=== PATIENT | male | born 1955 | race Caucasian/White ===

== ENCOUNTER 2017-11-10 10:34 | Outpatient (CLI) | payer OTHER ==
--- NOTE | 2017-11-10 12:48 | CT ---
CTA OF NECK AND INTRACRANIAL CTA: History: Patient with aortic aneurysm. I71.9 Technique: 2D and 3D reconstructed images performed on an independent 3D workstation. FINDINGS: There is a descending aortic dissection. The true lumen is significantly smaller than the false lumen . Calcifications seen in the LAD. The right brachiocephalic artery is unremarkable. Some subclavian calcifications are seen on the righ t. The right common carotid artery is patent. There is some atherosclerotic plaque in the distal lowe r aspect of the right CCA and the right carotid bulb. This extends into the right ICA resulting in ap proximately 25% distal right CCA and proximal right ICA stenosis. The right ICA is patent. The left c ommon carotid artery contains some atherosclerotic plaque in the distal most aspect in the left carot id bulb extending into the left ICA resulting in approximately 20% left ICA stenosis. The distal inte rnal carotid arteries of the skull base are bilaterally tortuous. Good flow is seen in the right and left MCA and anterior cerebral arteries. The left vertebral artery is hypoplastic. The right vertebra l artery is unremarkable. The basilar artery and posterior cerebral arteries are unremarkable. Crusher Feeder ior communicating arteries and anterior communicating artery are unremarkable. IMPRESSION: 1. Aortic dissection in the descending thoracic aorta. 2. Left anterior descending coronary artery calcifications. 3. Approximately 20% bilateral carotid bulb and ICA stenosis. POS: [facility]
[2017-11-10] MEDS ORDERED: Iopamidol 370 76% 100 ML VIAL ONE (17:26)
== END 2017-11-10 10:35 | disposition home or self-care (01) ==
LOC: CT 10:34
PROVIDERS: ATTEND Internal Medicine Cardiovascular Disease
DX: I71.9 Aortic aneurysm of unspecified site, without rupture (principal); I71.01 Dissection of thoracic aorta; I25.10 Atherosclerotic heart disease of native coronary artery without angina pectoris; I65.23 Occlusion and stenosis of bilateral carotid arteries
CPT/HCPCS: 70496; 70498

== ENCOUNTER 2017-12-05 10:23 | Outpatient (CLI) | payer OTHER ==
[~2017-12-05 10:23] MED LIST: Iopamidol 370 76% 100 ML VIAL ONE
[2017-12-05 11:11] LABS: Estimated GFR-MDRD - POC Greater than 90
--- NOTE | 2017-12-05 12:08 | CT ---
CT ARTERIOGRAM CHEST WITH IV CONTRAST AND 3D MIP IMAGING CT ARTERIOGRAM ABDOMEN WITH IV CONTRAST AND 3D MIP IMAGING: History: Aortic dissection. Comparison: 11-10-17, 04-28-14, 04-27-07 FINDINGS: Dilatation of the ascending aorta, beginning at the level of the aortic root, measures up to 7.6 cm g reatest AP diameter. There is normal branching of the great vessels. Calcification is present within the coronary arteries and other arterial structures. Prior coronary artery bypass surgery is apparent . Separation of the intima from the inner aortic wall of the descending aorta begins just distal to the left subclavian artery. The false lumen is larger than the true lumen with the dissection extending to the level of the aortic bifurcation. Thrombus is present at the apex of the distal aortic arch aris r the origin of the dissection. Visceral arteries are patent. There is flow into each iliac system. Small cysts are again demonstrated throughout the liver. A large lobulated predominately low density mass involving the left adrenal gland now contains some calcification. The mass measures up to 4.2 cm greatest oblique diameter on the axial images. There are degenerative changes of the lumbar spine. Diverticula arise from the colon without adjacent inflammation apparent. The pelvis is incompletely imaged. IMPRESSION: 1. Large [place] type B aortic dissection as detailed above. 2. Interval enlargement of the ascending aortic aneurysm, up to 7.6 cm diameter. 3. Atherosclerosis. 4. Enlarging left adrenal mass. Neoplasm is favored. Correlation with clinical and laboratory finding s regarding possibility of primary adrenal neoplasm is required. Percutaneous image guided biopsy cou ld be performed if needed. 5. Diverticulosis. POS: [facility]
== END 2017-12-05 10:24 | disposition home or self-care (01) ==
LOC: CT 10:23
PROVIDERS: ATTEND Thoracic Surgery (Cardiothoracic Vascular Surgery)
DX: I71.01 Dissection of thoracic aorta (principal); I71.2 Thoracic aortic aneurysm, without rupture; I70.90 Unspecified atherosclerosis; K57.90 Diverticulosis of intestine, part unspecified, without perforation or abscess without bleeding; E27.8 Other specified disorders of adrenal gland
CPT/HCPCS: 71275; 74175; 82565

== ENCOUNTER 2017-12-15 15:10 | Outpatient (CLI) | payer OTHER ==
[2017-12-15 16:20] LABS: Hemoglobin 15.1 g/dL (14.0-18.0)
[2017-12-15 16:56] LABS: ALT (SGPT) 28 U/L (8-55); AST (SGOT) 31 U/L (5-34); Albumin 4.4 g/dL (3.4-4.8); Alkaline Phosphatase 67 U/L (40-150); Anion Gap 14 mmol/L (10-20); BUN (Urea Nitrogen) 19 mg/dL (8.4-25.7); Bilirubin, Total 2.2 mg/dL (0.2-1.2); Calc. Creatinine Clearance 0 mL/min (70-130); Calcium 10.2 mg/dL (7.8-10.44); Carbon Dioxide 26 mmol/L (23-31); Chloride 106 mmol/L (98-107); Estimated GFR-MDRD Greater than 90; Globulin 2.4 g/dL (2.4-3.5); Glucose 100 mg/dL (80-115); Protein, Total 6.8 g/dL (5.8-8.1); Sodium 142 mmol/L (136-145)
== END 2017-12-15 15:11 | disposition home or self-care (01) ==
LOC: LABBT 15:10
PROVIDERS: ATTEND Internal Medicine Cardiovascular Disease
DX: Z01.810 Encounter for preprocedural cardiovascular examination (principal); I71.03 Dissection of thoracoabdominal aorta
CPT/HCPCS: 80053; 85014; 85018

== ENCOUNTER 2018-02-02 07:09 | Day surgery (SDC) | payer OTHER ==
[2018-02-01 09:24] VITALS: BMI 36.3
[2018-02-02] MEDS ORDERED: Diprivan 20 ML ONE (08:14)
[2018-02-02] MEDS ORDERED: Lidocaine 2% PF 100 mg/5 ml Syringe ONE (08:14)
[2018-02-02] MEDS ORDERED: Furosemide 20 MG/2 ML VIAL ONE (09:17)
[2018-02-02 09:57] LABS: INR-International Normal Ratio 1.7; Prothrombin Time 20.1 SEC (12.0-14.7)
--- NOTE | 2018-02-02 10:31 | OP ---
DATE OF PROCEDURE: 02/02/2018 INDICATION FOR PROCEDURE: A 62-year-old patient with atrial fibrillation and flutter post-surgical p rocedure. He was advised to undergo electrical cardioversion. He was taken to the recovery area whe re he underwent short acting propofol. Using 1 attempt at 100 joules he was successfully converted f rom his atrial flutter back to sinus rhythm without any difficulties or complications.
[2018-02-02 10:35] LABS: Anion Gap 14 mmol/L (10-20); BUN (Urea Nitrogen) 28 mg/dL (8.4-25.7); Calc. Creatinine Clearance 125 mL/min (70-130); Calcium 9.8 mg/dL (7.8-10.44); Carbon Dioxide 31 mmol/L (23-31); Chloride 103 mmol/L (98-107); Estimated GFR-MDRD 71; Glucose 151 mg/dL (80-115); Potassium 3.5 mmol/L (3.5-5.1); Sodium 144 mmol/L (136-145)
--- NOTE | 2018-02-02 14:24 | DIS ---
DATE OF PROCEDURE: 02/02/2018 He was seen in the outpatient setting to undergo electrocardioversion of atrial flutter. His other d iagnoses includes: 1. Atrial flutter. 2. Congestive heart failure symptoms. 3. Status post aortic arch replacement. 4. Coronary artery disease. 5. He also underwent a single vessel bypass surgery at the time of his aortic arch replacement as we ll as a valve replacement of the aortic valve. 6. He has history of intermittent atrial fibrillation. 7. He has a history of dyslipidemia. 8. History of hypertension. DISCHARGE DIAGNOSES: 1. Atrial flutter. 2. Congestive heart failure symptoms. 3. Status post aortic arch replacement. 4. Coronary artery disease. 5. He also underwent a single vessel bypass surgery at the time of his aortic arch replacement as we ll as a valve replacement of the aortic valve. 6. He has history of intermittent atrial fibrillation. 7. He has a history of dyslipidemia. 8. History of hypertension. PROCEDURES: Electrocardioversion of atrial flutter back to normal sinus rhythm with one attempt at 1 00 joules. FOLLOW UP: His followup will be with me in 7-10 days in the office. He will continue routine follow ups the primary care physician, Dr. Cesar Lin. HOSPITAL COURSE: This is a very pleasant 62-year-old gentleman who has a history of coronary disease and aortic aneurysm. He has undergone aortic valve replacement in the past. He was seen and in the outpatient setting was found to have aortic aneurysm, ascending aortic aneurysm and was advised to u ndergo repair. He was sent down to [place], Dr. Ramirez, where he underwent the procedure. He had a ortic arch replacement as well as coronary bypass grafting. He was noted on the follow up to be in a trial flutter. He also had significant signs of congestive heart failure at least lower extremity ed ori. On further questioning, the patient is not clear as to whether or not he has been taking his La six. This was not on his medication list that he brought in. It was on our list of medications from the office and when he goes home today he will give us that listing of his medications. He underwent the procedure today without any difficulties or complications except for showing defined IV access, but this was eventually found using venous ultrasound and the Anesthesiology were able to place the IV. He only required 100 joules to convert him back to sinus rhythm and since then conver alejandro and has remained in sinus rhythm. At this time, we will continue to follow him very carefully, b ut he will need further diuresis. He has significant lower extremity edema. His chest is clear ante riorly, decreases in the bases and his heart rate was regular, but did show atrial flutter after proc edure. His heart rate was stable in the 70s with sinus rhythm. If he remains stable, he will be dis charged home later today. He will need to call us from home with his medication list to determine wh ether he is taking his Lasix or not. It appears that he may not be taking his Lasix. This may be th e etiology of lower extremity edema. We will try to diurese the patient. I will give him 20 mg of I V Lasix prior to discharge here and see how he responds to the medication and he will call me when he arrived at home. We will also obtain a BMP to ensure that his potassium level is not too low.
== END 2018-02-02 10:14 | disposition home or self-care (01) ==
LOC: CCL 07:09
PROVIDERS: ATTEND Internal Medicine Cardiovascular Disease
PROC: 5A2204Z Restoration of Cardiac Rhythm, Single (ICD-10-PCS; principal; 2018-02-02)
DX: I48.92 Unspecified atrial flutter (principal); I48.91 Unspecified atrial fibrillation; I25.10 Atherosclerotic heart disease of native coronary artery without angina pectoris; E78.5 Hyperlipidemia, unspecified; I10 Essential (primary) hypertension; I71.2 Thoracic aortic aneurysm, without rupture; Z88.0 Allergy status to penicillin; Z95.2 Presence of prosthetic heart valve; Z95.1 Presence of aortocoronary bypass graft; Z98.890 Other specified postprocedural states
CPT/HCPCS: 80048; 85610; 92960; 96374; J1940; J2001; J2704

== ENCOUNTER 2018-05-03 12:05 | Inpatient (IN) | payer OTHER ==
[2018-05-03 13:12] LABS: Hemoglobin 12.7 g/dL (14.0-18.0); Mean Corpuscular HGB CONC 31.2 g/dL (32.0-36.0); Mean Corpuscular Hemoglobin 27.3 pg (27.0-31.0); Mean Corpuscular Volume 87.6 fl (80.0-94.0); Mean Platelet Volume 9.5 fL (7.4-10.4); Platelet Count 166 thou/uL (130-400); RBC Distribution Width 15.7 % (11.5-14.5); Red Blood Cell (RBC) Count 4.64 mill/uL (4.70-6.10); White Blood Cell (WBC) Count 9.6 thou/uL (4.8-10.8)
[2018-05-03 13:32] LABS: ALT (SGPT) 17 U/L (8-55); AST (SGOT) 21 U/L (5-34); Albumin 3.9 g/dL (3.4-4.8); Alkaline Phosphatase 63 U/L (40-150); Anion Gap 15 mmol/L (10-20); BUN (Urea Nitrogen) 16 mg/dL (8.4-25.7); Calc. Creatinine Clearance 0 mL/min (70-130); Calcium 9.7 mg/dL (7.8-10.44); Carbon Dioxide 21 mmol/L (23-31); Chloride 104 mmol/L (98-107); Estimated GFR-MDRD Greater than 90; Globulin 3.1 g/dL (2.4-3.5); Glucose 125 mg/dL (80-115); Potassium 3.5 mmol/L (3.5-5.1); Sodium 136 mmol/L (136-145)
[2018-05-03 13:39] LABS: Anisocytosis SLIGHT = 6-15 cells (100X) (0-5/hpf); Band 16 % (5-11); Hypochromia SLIGHT = 6-15 cells (100X) (0-5/hpf); Lymphocytes 2 % (21-51); MDiff Complete? YES; Monocytes 2 % (0-10); Neutrophil 80 % (42-75); PLT Morphology Comment Appears Adequate
[2018-05-03] MEDS ORDERED: Acetaminophen 500 MG TAB ONE (13:41)
--- NOTE | 2018-05-03 15:10 | ULT ---
VENOUS DUPLEX SONOGRAM LEFT LOWER EXTREMITY: HISTORY: Left leg pain and edema. FINDINGS: The left common femoral vein and greater saphenous junction were evaluated along with the femoral, de ep femoral, popliteal, and posterior tibial veins. There is good color and spectral Doppler flow, co mpression and augmentation. IMPRESSION: No sonographic evidence of deep vein thrombosis left lower extremity. POS: [facility]
[2018-05-03] MEDS ORDERED: Cefepime 2 GM VIAL ONE (16:20)
[2018-05-03] MEDS ORDERED: Ondansetron HCl/PF 4 MG/2 ML Vial IVP PRN (17:23)
[2018-05-03] MEDS ORDERED: Ondansetron ODT 4 MG TAB SL PRN (17:23)
[2018-05-03] MEDS ORDERED: hydrALAZINE 20 MG/ML VIAL SLOW IVP PRN (17:24)
[2018-05-03] MEDS ORDERED: HYDROcodone/Acetaminophen 5/325 mg Tablet PO PRN (17:24)
[2018-05-03] MEDS ORDERED: Mag-Al 1200 mg/1200 mg/30 ML UDCUP PO PRN (17:24)
[2018-05-03 17:44] VITALS: BMI 33.9
[2018-05-03] MEDS ORDERED: Vancomycin HCl 1.5 GM in Sodium Chloride 0.9% 250 ML 300 ML IVPB SCH (18:15)
[2018-05-03] MEDS: Sodium Chloride 0.9% 1,000 ML IV SCH (18:23)
[2018-05-03] MEDS: Acetaminophen 325 MG TAB PO PRN ×2 (18:33→23:38)
[2018-05-03 18:38] LABS: INR-International Normal Ratio 2.6; Prothrombin Time 28.8 SEC (12.0-14.7)
[2018-05-03] MEDS ORDERED: Warfarin Sodium 5 MG TAB PO SCH (19:45)
[2018-05-03] MEDS ORDERED: Ibuprofen 800 MG TAB PO PRN (20:16)
[2018-05-03] MEDS ORDERED: Vancomycin HCl 1 GM in Premix Bag 1 BAG IVPB SCH (21:00)
[2018-05-03] MEDS: cloNIDine 0.1 MG TAB PO SCH ×2 (21:06→23:43)
[2018-05-03] MEDS: Carvedilol 3.125 MG TAB PO SCH (21:07)
[2018-05-03] MEDS: Docusate 100 MG CAP PO SCH (21:07)
--- NOTE | 2018-05-03 21:10 | HP ---
PRIMARY CARE PHYSICIAN: Dr. Cesar Lin. CHIEF COMPLAINT: Pain and swelling in the left lower extremity. HISTORY OF PRESENT ILLNESS: The history of present illness is more or less limited as the patient do es not elaborate very much on his symptoms. He says that he began having some swelling in the left l ower extremity about 3-5 days ago. He denies having any trauma to the area. He denies any scratches , etc. He does admit that he is on his feet almost 12 hours a day for his work. He says that the sw elling got progressively worse in his left leg and then he also noted some redness and some soreness and it seemed to get even progressively worse overnight. This is why he was concerned and then came to the ER for evaluation. In the ER, he was evaluated and found to have a cellulitis of the lower ex tremity. His white count was normal, but he did have quite a bit of a left shift as well as a signif icant bandemia. Ultrasound of the leg was negative for DVT and he is being admitted for further eval uation and treatment. The patient denies any chest pain or shortness of breath. No fevers, no chill s, etc. REVIEW OF SYSTEMS: Constitutional: Again, no fevers, chills, no night sweats, no weight loss. HEEN T: No headache, no dizziness, no visual changes, no sore throat, rhinorrhea, neck pain, no adenopath y. Pulmonary: No hemoptysis, no cough, no wheezing. Cardiovascular: He denies any chest pain, no shortness of breath, no PND, no orthopnea. Gastrointestinal: No abdominal pain, no nausea, no vomit ing, no change in bowels. Genitourinary: No urinary frequency, hematuria, no hesitancy. Neurologic : No focal weakness, numbness, no seizures. Psychiatric: No symptoms of anxiety or depression. Sk in And Integument: As stated in the history of present illness. PAST MEDICAL HISTORY: Significant for coronary artery disease, history of atrial flutter, hyperlipid emia, hypertension, peripheral vascular disease, abdominal aortic aneurysm, and obesity. PAST SURGICAL HISTORY: He has had a repair of an abdominal aortic aneurysm in December of this year. The patient also had a hernia repair, right total knee replacement, coronary artery bypass grafting . He had surgery to repair a fracture in his left foot and an aortic valve replacement. ALLERGIES: PENICILLIN. SOCIAL HISTORY: He is not a smoker. He occasionally drinks one beer a week. He is single. He has no children. His surrogate decision maker is a cousin by the name of Martha Byrne. He would like to be a F[employer]. FAMILY HISTORY: Negative for any inheritable diseases. CURRENT MEDICATIONS: Include Coumadin 5 mg daily, aspirin 81 mg daily, atorvastatin 40 mg daily, car vedilol 3.125 mg twice a day, Catapres 0.1 mg twice daily, and hydrochlorothiazide 25 mg daily. PHYSICAL EXAMINATION: GENERAL: He is alert and oriented. He appears to be in no acute distress. He has had some appears to be rigors. VITAL SIGNS: Blood pressure was 120/68, heart rate is 87, respiratory rate of 18, temperature was up to 102.7. HEENT: His pupils are equal, round, and reactive. Extraocular muscles are intact. His sclerae anic teric. Throat no erythema, no exudates. NECK: No adenopathy, no bruits. LUNGS: Clear to auscultation. There is no wheezing or rales. CARDIOVASCULAR: He has a normal S1, S2. There was no S3 or S4. No murmurs, clicks, or rubs. ABDOMEN: Soft, it is nontender, nondistended. Positive for bowel sounds. No rebound or guarding. EXTREMITIES: He has significant redness of the left lower extremity up to the area of the knee. The re is also erythema. He has pitting edema in the left lower extremity as well and palpable dorsalis pedis pulses bilaterally; however, it is slightly diminished. NEURO: The exam is nonfocal. LABORATORY DATA: White blood cell count is 9.6, hemoglobin 12.7, hematocrit is 40.6, platelet count is 166, neutrophils are 80, bands are 16. Sodium is 136, potassium 3.5, chloride is 104, CO2 is 21, BUN is 16, creatinine 0.76, glucose is 125, natriuretic peptide is 695, total bilirubin is 2.0. He h ad a lower extremity venous Doppler, which was negative for DVT. ASSESSMENT AND PLAN: This is a 63-year-old gentleman who presents with swelling and erythema of the left lower extremity as well as fever and bandemia. This likely represents a cellulitis. He also me ets criteria for sepsis given the fever and bandemia. He will be placed in observation, started on I V antibiotics to cover the usual organisms including Staph and Strep and will add vancomycin for poss ible methicillin-resistant Staphylococcus aureus. Blood cultures have been taken due to the fever in the ER. 1. History of aortic valve replacement and chronic Coumadin. He will be started back on his usual m edications as well as Coumadin, and we will monitor his PT and INR daily. 2. Hypertension. Again, restart his usual antihypertensive medications as well as p.r.n. medication s. The patient will be reevaluated in the a.m. at which time, we will decide whether or not he needs continued hospitalization or if he can be discharged home. The area of the cellulitis was marked in the ER.
[2018-05-04] MEDS ORDERED: Cefepime 2 GM in Sodium Chloride 0.9% 100 ML IVPB SCH (04:00)
[2018-05-04] MEDS: Acetaminophen 325 MG TAB PO PRN ×3 (04:09→20:19)
[2018-05-04] MEDS ORDERED: Vancomycin HCl 1 GM in Premix Bag 1 BAG IVPB SCH (05:00)
[2018-05-04 05:16] LABS: INR-International Normal Ratio 2.4
[2018-05-04 05:17] LABS: #Lymphocytes 0.5 thou/uL (1.20-3.40); #Monocytes 0.3 thou/uL (0.11-0.59); #Neutrophils 8.2 thou/uL (1.40-6.50); %Basophils 0.3 % (0.0-1.0); %Eosinophils 0.4 % (0.0-10.0); %Lymphocytes 5.4 % (21.0-51.0); %Neutrophils 90.9 % (42.0-75.0); Hemoglobin 12.1 g/dL (14.0-18.0); Mean Corpuscular HGB CONC 30.9 g/dL (32.0-36.0); Mean Corpuscular Volume 87.3 fl (80.0-94.0); Mean Platelet Volume 9.6 fL (7.4-10.4); Platelet Count 155 thou/uL (130-400); RBC Distribution Width 15.7 % (11.5-14.5)
[2018-05-04 05:33] LABS: Anion Gap 11 mmol/L (10-20); BUN (Urea Nitrogen) 19 mg/dL (8.4-25.7); Calc. Creatinine Clearance 160 mL/min (70-130); Calcium 9.3 mg/dL (7.8-10.44); Carbon Dioxide 22 mmol/L (23-31); Chloride 106 mmol/L (98-107); Estimated GFR-MDRD Greater than 90; Glucose 146 mg/dL (80-115); Potassium 3.4 mmol/L (3.5-5.1); Sodium 136 mmol/L (136-145)
[2018-05-04] MEDS: Sodium Chloride 0.9% 1,000 ML IV SCH (07:47)
[2018-05-04] MEDS: Docusate 100 MG CAP PO SCH ×2 (07:50→20:20)
[2018-05-04] MEDS: cloNIDine 0.1 MG TAB PO SCH ×2 (07:50→20:20)
[2018-05-04] MEDS: Atorvastatin Calcium 40 MG TAB PO SCH (07:50)
[2018-05-04] MEDS: Carvedilol 3.125 MG TAB PO SCH ×2 (07:50→20:20)
[2018-05-04] MEDS: Hydrochlorothiazide 25 MG TAB PO SCH (07:50)
[2018-05-04] MEDS: Aspirin 81 mg Enteric Coated Tablet PO SCH (07:51)
[2018-05-04] MEDS: cefTRIAXone\\ROCEPHIN 1 GM in Sodium Chloride 0.9% 100 ML IVPB SCH ×2 (13:35→17:16)
[2018-05-04] MEDS: Warfarin Sodium 7.5 MG TAB PO SCH (17:15)
--- NOTE | 2018-05-04 21:59 | CON ---
DATE OF CONSULTATION: 05/05/2018 REASON FOR CONSULTATION: Bacteremia, artificial heart valve and cellulitis. HISTORY OF PRESENT ILLNESS: A 63-year-old who has a history of aortic valve replacement [address] Hernandez in [facility]. Subsequent aortic root replacement with another second replacement of the aortic valve prosthesis by different one in [place], who recovered from that surgery without difficulty except for problems with swelling of lower extremities. This was managed successfully, but over time, he noticed recurrence of swelling of the lower extremities and then development of redness and pain, went to the emergency room and that was admitted. He has been started on broad-spectrum coverage. He is awake, sitting by the bedside, appears in no distress, appears chronically ill. No headaches, no visual symptoms, sore throat, odynophagia, dysphagia, no back pain, no dyspnea or chest pain, no abdominal pain or diarrhea. Voiding without difficulty, somewhat constipated. No neurological symptoms. PAST MEDICAL HISTORY: Coronary artery disease, aortic valve insufficiency with replacement and then aortic root replacement with a replacement of the aortic valve, obesity, PVD, hypertension, venous insufficiency. PAST SURGICAL HISTORY: As above, hernia repair, right TKR fracture, left foot. ALLERGIES: PENICILLIN with rash. 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 Drinks occasionally. Never smoker. Lives in [place]. Has animals and property mostly dogs and cows. FAMILY HISTORY: Noncontributory. CURRENT MEDICATIONS: Tylenol, Wilder, Maalox, aspirin, Lipitor, Coreg, ceftriaxone, Catapres, Colace, Apresoline, pantoprazole, Warfarin. PHYSICAL EXAMINATION: VITAL SIGNS: T-max 102.4. He is currently afebrile. BP 150/70, pulse 78, respirations 18, O2 sat 95%. SKIN: Shows the area of circumferential inflammatory changes left leg, more prominent in the anterior segment. It is extending from the region below-the- knee towards the left ankle. Peripheral IV access. No Freedman catheter. No lymphadenopathy. HEENT: Ocular movements are conjugate. Oral cavity unremarkable. NECK: Supple. No jugular vein distention. LUNGS: Symmetric clear breath sounds. HEART: Has a very sharp diastolic click of the prosthetic aortic valve and no murmurs heard. ABDOMEN: Slightly distended, not tender. No ascites. No bladder distention, no organomegaly. EXTREMITIES: No joint inflammatory activity noted. Pulses are difficult to evaluate because of edema in lower extremities. Patient has 4+ edema lower extremities, right and left side quite symmetric. He is able to move extremities with limitations imposed by the inflammatory process and the edema. NEUROLOGIC: His cognitive function appears to be intact. LABORATORY DATA: White cell count 9.6 and 9.0, hemoglobin 12, MCV 87, platelets 155, 90% neutrophils. INR 2.4 and chemistry remarkable for carbon dioxide 21, glucose 125, bilirubin 2.0, albumin 3.9. Two sets of blood cultures , Streptococcus species. Verigene testing did not associate retrieved organism with any of the known subtypes. We will wait for the final full identification to determine the exact nature of this pathogen. No imaging studies are available at this time. The last chest CTA was in 12/05/2017, which demonstrated aortic dissection, Evans type B and ascending aortic aneurysm. ASSESSMENT: 1. Aortic aneurysm, prior aortic valve replacement, we then repair of the aortic arch and replacement of the aortic valve. 2. Venous insufficiency and edema of lower extremities with cellulitis, left leg. 3. Streptococcal bacteremia. DISCUSSION: The most likely scenario is Streptococcal bacteremia associated with cellulitis in lower extremities is secondary to beta hemolytic Streptococci , but we will wait on the final identification of the organism. If it is truly beta hemolytic, then it is less likely to be associated with involvement of the valve. Pending on the identification will might need further evaluation including possible HEBER. I recommend that the patient to elevate the extremities during the stay here in the hospital. Continue Rocephin as currently. I would recommend then suppressive Keflex 250 twice daily after completion of the treatment for this acute infection. Duration of therapy probably at least 2 weeks, but it will depend on the final identification of the organism and the resolution of the concerns with valvular involvement. Again, I think it is not likely that he has a valvular involvement. [place]
[2018-05-05 04:43] LABS: INR-International Normal Ratio 2.2; Prothrombin Time 24.8 SEC (12.0-14.7)
[2018-05-05 05:45] LABS: Band 18 % (5-11); Hemoglobin 11.8 g/dL (14.0-18.0); Lymphocytes 11 % (21-51); MDiff Complete? YES; Mean Corpuscular HGB CONC 31.3 g/dL (32.0-36.0); Mean Corpuscular Volume 86.5 fl (80.0-94.0); Mean Platelet Volume 9.8 fL (7.4-10.4); Monocytes 1 % (0-10); Neutrophil 70 % (42-75); Platelet Count 141 thou/uL (130-400); RBC Distribution Width 15.6 % (11.5-14.5); Red Blood Cell (RBC) Count 4.37 mill/uL (4.70-6.10); White Blood Cell (WBC) Count 9.1 thou/uL (4.8-10.8)
[2018-05-05 06:19] LABS: Chloride 104 mmol/L (98-107); Potassium 3.4 mmol/L (3.5-5.1); Sodium 137 mmol/L (136-145)
[2018-05-05 06:20] LABS: Calcium 9.7 mg/dL (7.8-10.44); Glucose 139 mg/dL (80-115)
[2018-05-05 06:22] LABS: Anion Gap 12 mmol/L (10-20); Carbon Dioxide 24 mmol/L (23-31)
[2018-05-05 06:24] LABS: Calc. Creatinine Clearance 156 mL/min (70-130); Estimated GFR-MDRD Greater than 90
[2018-05-05 06:25] LABS: BUN (Urea Nitrogen) 14 mg/dL (8.4-25.7)
[2018-05-05] MEDS: Aspirin 81 mg Enteric Coated Tablet PO SCH (08:08)
[2018-05-05] MEDS: Atorvastatin Calcium 40 MG TAB PO SCH (08:08)
[2018-05-05] MEDS: Hydrochlorothiazide 25 MG TAB PO SCH (08:09)
[2018-05-05] MEDS: Carvedilol 3.125 MG TAB PO SCH ×2 (08:09→20:54)
[2018-05-05] MEDS: cloNIDine 0.1 MG TAB PO SCH ×2 (08:09→20:54)
[2018-05-05] MEDS: Docusate 100 MG CAP PO SCH ×2 (08:09→20:55)
[2018-05-05] MEDS: cefTRIAXone\\ROCEPHIN 1 GM in Sodium Chloride 0.9% 100 ML IVPB SCH (11:02)
--- NOTE | 2018-05-05 11:43 | PDOC.PN ---
- Subjective Encounter Start Date: 05/04/18 (LATE entry- patient seen on 05/04/2018) Encounter Start Time: 12:41 Mr. Strickland was seen today in follow-up. He says he feels better, and believes his leg is better. - Objective Resuscitation Status: Resuscitation Status FULL:Full Resuscitation MAR Reviewed: Yes Vital Signs & Weight: Vital Signs (12 hours) Temp Pulse Resp BP BP Pulse Ox 05/05/18 08:09 128/65 05/05/18 08:00 98.2 F 82 18 95 05/05/18 07:34 98.2 F 82 18 128/65 95 05/05/18 04:12 98.9 F 05/05/18 00:00 99.0 F 95 18 94 L Weight Weight 257 lb I&O: 05/04/18 05/05/18 05/06/18 06:59 06:59 06:59 Intake Total 2848 300 Output Total 0 200 Balance 2848 100 Result Diagrams: 05/05/18 03:59 05/05/18 06:06 Phys Exam - Physical Examination HEENT: PERRLA Respiratory: no wheezing, no rales, no rhonchi, clear to auscultation bilateral Cardiovascular: RRR, no significant murmur, no rub Gastrointestinal: soft, non-tender, positive bowel sounds Musculoskeletal: edema present + massive edema in the left leg, erythema is in the same distribution Dx/Plan (1) Cellulitis and abscess of left leg Code(s): L03.116 - CELLULITIS OF LEFT LOWER LIMB; L02.416 - CUTANEOUS ABSCESS OF LEFT LOWER LIMB Status: Acute (2) Coronary artery disease Code(s): I25.10 - ATHSCL HEART DISEASE OF [place] CORONARY ARTERY W/O ANG PCTRS Status: Acute (3) Venous stasis Code(s): I87.8 - OTHER SPECIFIED DISORDERS OF VEINS Status: Acute (4) Obesity (BMI 30.0-34.9) Code(s): E66.9 - OBESITY, UNSPECIFIED Status: Acute - Plan * Cellulitis- the appearance of the leg is about the same, and blood cultures are positive for Streptococcus * Given he has a prosthetic heart valve will consult ID for help in his management * CAD- stable * Chronic venous stasis- elevated legs.
--- NOTE | 2018-05-05 11:50 | PDOC.PN ---
- Subjective Encounter Start Date: 05/05/18 Encounter Start Time: 11:48 Mr. Strickland is feeling better, he was seen in follow-up of cellulitis. He wants to go home tomorrow. No complaints. - Objective Resuscitation Status: Resuscitation Status FULL:Full Resuscitation MAR Reviewed: Yes Vital Signs & Weight: Vital Signs (12 hours) Temp Pulse Resp BP BP Pulse Ox 05/05/18 08:09 128/65 05/05/18 08:00 98.2 F 82 18 95 05/05/18 07:34 98.2 F 82 18 128/65 95 05/05/18 04:12 98.9 F 05/05/18 00:00 99.0 F 95 18 94 L Weight Weight 257 lb I&O: 05/04/18 05/05/18 05/06/18 06:59 06:59 06:59 Intake Total 2848 300 Output Total 0 200 Balance 2848 100 Result Diagrams: 05/05/18 03:59 05/05/18 06:06 Phys Exam - Physical Examination HEENT: PERRLA Respiratory: no wheezing, no rales, no rhonchi, clear to auscultation bilateral Cardiovascular: RRR, no significant murmur, no rub Gastrointestinal: soft, positive bowel sounds Musculoskeletal: edema present massive bilateral edema, more intende erythema, but the area is coalescing Dx/Plan (1) Cellulitis and abscess of left leg Code(s): L03.116 - CELLULITIS OF LEFT LOWER LIMB; L02.416 - CUTANEOUS ABSCESS OF LEFT LOWER LIMB Status: Acute (2) Coronary artery disease Code(s): I25.10 - ATHSCL HEART DISEASE OF [place] CORONARY ARTERY W/O ANG PCTRS Status: Acute (3) Venous stasis Code(s): I87.8 - OTHER SPECIFIED DISORDERS OF VEINS Status: Acute (4) Obesity (BMI 30.0-34.9) Code(s): E66.9 - OBESITY, UNSPECIFIED Status: Acute - Plan * Cellulitis of the left lower extremity with sepsis, and Strep bacteremia- continue Rocephin. * ID input appreciated * await Echo * CAD- stable * HTN- blood pressure is controlled
[2018-05-05] MEDS: Warfarin Sodium 5 MG TAB PO SCH (16:56)
[2018-05-06 04:15] LABS: Hemoglobin 11.4 g/dL (14.0-18.0); Platelet Count 147 thou/uL (130-400)
[2018-05-06 04:19] LABS: Prothrombin Time 23.7 SEC (12.0-14.7)
[2018-05-06] MEDS: Aspirin 81 mg Enteric Coated Tablet PO SCH (09:16)
[2018-05-06] MEDS: Atorvastatin Calcium 40 MG TAB PO SCH (09:16)
[2018-05-06] MEDS: Docusate 100 MG CAP PO SCH ×2 (09:16→20:29)
[2018-05-06] MEDS: Carvedilol 3.125 MG TAB PO SCH ×2 (09:16→20:28)
[2018-05-06] MEDS: Hydrochlorothiazide 25 MG TAB PO SCH (09:16)
[2018-05-06] MEDS: cloNIDine 0.1 MG TAB PO SCH ×2 (09:16→20:28)
[2018-05-06] MEDS: cefTRIAXone\\ROCEPHIN 1 GM in Sodium Chloride 0.9% 100 ML IVPB SCH (11:16)
--- NOTE | 2018-05-06 13:08 | PRG ---
DATE OF SERVICE: 05/06/2018 SUBJECTIVE: Sitting up by the bedside. No headaches, respiratory symptoms or chest pain. No abdomi nal pain or diarrhea. Left leg is somewhat better. OBJECTIVE: VITAL SIGNS: Not remarkable. EXTREMITIES: Left leg with quite a bit of swelling, still in redness. The patient is keeping it diana n instead of what we had recommended. LUNGS: Clear. HEART: S1 and S2. No murmurs. Sharp diastolic sound of the aortic valve. ABDOMEN: Soft, not distended. LABORATORY DATA: White cell count 9.1, hemoglobin 11, platelets 141. Chemistry not remarkable. Jae robiology with Streptococcus group G. Echo pending. Actually, the report is out and did not show an y findings of significance, but the prosthetic aortic valve leaflets were not well visualized. ASSESSMENT AND DISCUSSION: Aortic aneurysm with prior aortic valve replacement, now with venous insu fficiency and cellulitis left leg with group G Streptococcus. In view of the nature of the bacteria, it is very likely this represents a consequence of the cellulitis rather than any involvement of the valve. We would continue Rocephin. Eventually transition to oral Keflex and would placement on sup pressive Pen-Vee K for 1 year 250 mg twice daily after completion of the acute treatment phase. Comp ression dressing to be started now to accelerate improvement.
[2018-05-06] MEDS: Warfarin Sodium 5 MG TAB PO SCH (17:28)
[2018-05-07 05:04] LABS: INR-International Normal Ratio 2.1; Prothrombin Time 24.6 SEC (12.0-14.7)
--- NOTE | 2018-05-07 06:21 | PDOC.PN ---
- Subjective Encounter Start Date: 05/06/18 Encounter Start Time: 12:30 Subjective: pt up in chair no complains - Objective Resuscitation Status: Resuscitation Status FULL:Full Resuscitation Vital Signs & Weight: Vital Signs (12 hours) Temp Pulse Resp BP BP Pulse Ox 05/06/18 20:28 181/90 H 05/06/18 20:01 98.7 F 95 20 181/91 H 96 05/06/18 20:00 98.7 F 95 20 96 Weight Weight 257 lb I&O: 05/05/18 05/06/18 05/07/18 06:59 06:59 06:59 Intake Total 572 043 0242 Output Total 200 Balance 482 858 8112 Result Diagrams: 05/06/18 03:34 05/05/18 06:06 Phys Exam - Physical Examination HEENT: PERRLA, moist MMs, sclera anicteric, TM's clear, oral pharynx no lesions , 2+ tonsils Neck: no nodes, no JVD, supple, full ROM Respiratory: no wheezing, no rales, no rhonchi, wheezing present, clear to auscultation bilateral Cardiovascular: RRR, no significant murmur, no rub, gallop, irregular Gastrointestinal: soft, non-tender, no distention, positive bowel sounds left leg edema and erythema Neurological: non-focal, normal sensation, moves all 4 limbs Dx/Plan (1) Cellulitis and abscess of left leg Code(s): L03.116 - CELLULITIS OF LEFT LOWER LIMB; L02.416 - CUTANEOUS ABSCESS OF LEFT LOWER LIMB Status: Acute (2) Bacteremia Code(s): R78.81 - BACTEREMIA Status: Acute (3) Prosthetic replacement of heart valve Code(s): Z95.2 - PRESENCE OF PROSTHETIC HEART VALVE Status: Chronic Comment : AVR (4) Coronary artery disease Code(s): I25.10 - ATHSCL HEART DISEASE OF [place] CORONARY ARTERY W/O ANG PCTRS Status: Acute (5) Obesity (BMI 30.0-34.9) Code(s): E66.9 - OBESITY, UNSPECIFIED Status: Acute - Plan * . will continue iv abx for now, change to oral on discharge per ID recommendation. pt's echo was a poor study will reorder. continue coumadin, pt is therapeutic. Review of Systems - Review of Systems ENT: negative: Ear Pain, Ear Discharge, Nose Pain, Nose Discharge, Nose Congestion, Mouth Pain, Mouth Swelling, Throat Pain, Throat Swelling, Other Respiratory: negative: Cough, Dry, Shortness of Breath, Hemoptysis, SOB with Excertion, Pleuritic Pain, Sputum, Wheezing Cardiovascular: negative: chest pain, palpitations, orthopnea, paroxysmal nocturnal dyspnea, edema, light headedness, other Gastrointestinal: negative: Nausea, Vomiting, Abdominal Pain, Diarrhea, Constipation, Melena, Hematochezia, Other Genitourinary: negative: Dysuria, Frequency, Incontinence, Hematuria, Retention , Other - Medications/Allergies Allergies/Adverse Reactions: Allergies Allergy/AdvReac Type Severity Reaction Status Date / Time Penicillins Allergy Verified 05/03/18 17:33 Medications: Current Medications Acetaminophen (Tylenol) 650 mg PO Q4H PRN PRN Reason: Headache/Fever or Pain Last Admin: 05/04/18 20:19 Dose: 650 mg Hydrocodone Bitart/Acetaminophen ([place] 5/325) 1 tab PO Q4H PRN PRN Reason: Moderate Pain (4-6) Last Admin: 05/05/18 20:57 Dose: 1 tab Al Hydroxide/Mg Hydroxide (Maalox) 30 ml PO Q6H PRN PRN Reason: Heartburn or Indigestion Aspirin (Ecotrin) 81 mg PO [facility] Last Admin: 05/06/18 09:16 Dose: 81 mg Atorvastatin Calcium (Lipitor) 40 mg PO QAM [facility] Last Admin: 05/06/18 09:16 Dose: 40 mg Carvedilol (Coreg) 3.125 mg PO BID [facility] Last Admin: 05/06/18 20:28 Dose: 3.125 mg Clonidine (Catapres) 0.2 mg PO BID [facility] Last Admin: 05/06/18 20:28 Dose: 0.2 mg Docusate Sodium (Colace) 100 mg PO BID [facility] Last Admin: 05/06/18 20:29 Dose: 100 mg Hydralazine HCl (Apresoline) 10 mg SLOW IVP Q4H PRN PRN Reason: Systolic BP > 180 Hydrochlorothiazide (Hydrochlorothiazide) [facility] [place] Last Admin: 05/06/18 09:16 Dose: 25 mg Ceftriaxone Sodium 1 gm/ (Sodium Chloride) 100 mls @ 200 mls/hr IVPB Q24HR [facility] Last Admin: 05/06/18 11:16 Dose: 100 mls Ibuprofen (Motrin) 800 mg PO Q6H PRN PRN Reason: .FEVER Miscellaneous Medication (Pharmacy To Dose) 1 each IVPB PRN PRN PRN Reason: Pharmacy to dose Pantoprazole Sodium (Protonix) 40 mg PO QAM [facility] Last Admin: 05/06/18 09:16 Dose: 40 mg Warfarin Sodium (Coumadin) 5 mg PO SuTuThSa@[id number] [facility] Last Admin: 05/06/18 17:28 Dose: 5 mg Warfarin Sodium (Coumadin) 7.5 mg PO [email or web address]@[id number] [facility] Last Admin: 05/04/18 17:15 Dose: 7.5 mg
[2018-05-07] MEDS ORDERED: Furosemide 20 MG/2 ML VIAL SLOW IVP SCH (08:45)
[2018-05-07] MEDS: Atorvastatin Calcium 40 MG TAB PO SCH (08:52)
[2018-05-07] MEDS: cloNIDine 0.1 MG TAB PO SCH ×2 (08:52→21:18)
[2018-05-07] MEDS: Docusate 100 MG CAP PO SCH ×2 (08:52→21:18)
[2018-05-07] MEDS: Carvedilol 3.125 MG TAB PO SCH ×2 (08:52→21:18)
[2018-05-07] MEDS: Aspirin 81 mg Enteric Coated Tablet PO SCH (08:52)
[2018-05-07] MEDS: Hydrochlorothiazide 25 MG TAB PO SCH (08:52)
[2018-05-07] MEDS ORDERED: Vancomycin HCl 1.5 GM in Sodium Chloride 0.9% 250 ML 300 ML IVPB SCH (09:00)
[2018-05-07 09:29] LABS: Band 12 % (5-11); Eosinophils 2 % (0-10); Hemoglobin 13.3 g/dL (14.0-18.0); Lymphocytes 16 % (21-51); MDiff Complete? YES; Mean Corpuscular HGB CONC 31.1 g/dL (32.0-36.0); Mean Corpuscular Hemoglobin 26.9 pg (27.0-31.0); Mean Corpuscular Volume 86.5 fl (80.0-94.0); Monocytes 4 % (0-10); Neutrophil 62 % (42-75); PLT Morphology Comment Appears Adequate; Platelet Count 170 thou/uL (130-400); RBC Distribution Width 15.7 % (11.5-14.5); RBC Morphology Normal; Reactive Lymphocytes 3 % (0-10); Red Blood Cell (RBC) Count 4.94 mill/uL (4.70-6.10); White Blood Cell (WBC) Count 8.7 thou/uL (4.8-10.8)
[2018-05-07 09:46] LABS: Anion Gap 14 mmol/L (10-20); BUN (Urea Nitrogen) 11 mg/dL (8.4-25.7); Calc. Creatinine Clearance 156 mL/min (70-130); Carbon Dioxide 25 mmol/L (23-31); Chloride 98 mmol/L (98-107); Estimated GFR-MDRD Greater than 90; Glucose 172 mg/dL (80-115); Sodium 134 mmol/L (136-145)
[2018-05-07] MEDS: cefTRIAXone\\ROCEPHIN 1 GM in Sodium Chloride 0.9% 100 ML IVPB SCH (12:17)
[2018-05-07] MEDS: Warfarin Sodium 7.5 MG TAB PO SCH (17:13)
--- NOTE | 2018-05-07 17:25 | PRG ---
DATE OF SERVICE: 05/07/2018 SUBJECTIVE: Mr. Strickland is steadily improving. Still every time again in the room, he has his legs d own. No respiratory symptoms, no diarrhea. PHYSICAL EXAMINATION: VITAL SIGNS: T-max 99.0, blood pressure 140/74, pulse 87. The left leg with still about the same sw elling, maybe a little bit less than before. It is wrapped now by Wound Care. LUNGS: Clear. CARDIOVASCULAR: S1, S2, regular rate. ABDOMEN: Soft. LABORATORY DATA: The white cell count 8.7, hemoglobin 13, platelets 170, 62% neutrophils, 12% bands and the blood cultures with evidence of group Streptococcus group G. ASSESSMENT AND DISCUSSION: Aortic aneurysm with prior aortic valve replacement, venous insufficiency , and cellulitis left leg with group G Streptococcus steadily improving. Patient will have a mauricio fatmata dressing placed to accelerate improvement. Continue Rocephin and eventually transition to oral Keflex with using Keflex for suppression 250 mg twice daily for 6-12 months.
--- NOTE | 2018-05-07 18:29 | PDOC.PN ---
- Subjective Encounter Start Date: 05/07/18 Encounter Start Time: 12:00 Subjective: pt up in chair no complains - Objective Resuscitation Status: Resuscitation Status FULL:Full Resuscitation Vital Signs & Weight: Vital Signs (12 hours) Temp Pulse Resp BP Pulse Ox 05/07/18 08:00 99.0 F 87 18 05/07/18 07:31 99.0 F 87 18 143/74 H 95 Weight Admit Weight 257 lb Weight 257 lb I&O: 05/06/18 05/07/18 05/08/18 06:59 06:59 06:59 Intake Total 690 2040 Balance 690 2040 Result Diagrams: 05/07/18 08:53 05/07/18 08:53 Phys Exam - Physical Examination HEENT: PERRLA, moist MMs, sclera anicteric, TM's clear, oral pharynx no lesions , 2+ tonsils Neck: no nodes, no JVD, supple, full ROM Respiratory: no wheezing, no rales, no rhonchi, wheezing present, clear to auscultation bilateral Cardiovascular: RRR, no significant murmur, no rub, gallop, irregular Gastrointestinal: soft, non-tender, no distention, positive bowel sounds Musculoskeletal: edema present bilateral lower ext edema Neurological: non-focal, normal sensation, moves all 4 limbs Dx/Plan (1) Cellulitis and abscess of left leg Code(s): L03.116 - CELLULITIS OF LEFT LOWER LIMB; L02.416 - CUTANEOUS ABSCESS OF LEFT LOWER LIMB Status: Acute (2) Bacteremia Code(s): R78.81 - BACTEREMIA Status: Acute (3) Prosthetic replacement of heart valve Code(s): Z95.2 - PRESENCE OF PROSTHETIC HEART VALVE Status: Chronic Comment : AVR (4) Coronary artery disease Code(s): I25.10 - ATHSCL HEART DISEASE OF [place] CORONARY ARTERY W/O ANG PCTRS Status: Acute (5) Obesity (BMI 30.0-34.9) Code(s): E66.9 - OBESITY, UNSPECIFIED Status: Acute - Plan * pt up in chair no complains. will give one dose of lasix iv now. Pt's echo was not a good study. will discharge pt on keflex. spoke with wound care nurse about compression dressing recommended by ID. wound care nurse recommended to get LOLA prior to doing compression dressing. will order LOLA. Review of Systems - Review of Systems ENT: negative: Ear Pain, Ear Discharge, Nose Pain, Nose Discharge, Nose Congestion, Mouth Pain, Mouth Swelling, Throat Pain, Throat Swelling, Other Respiratory: negative: Cough, Dry, Shortness of Breath, Hemoptysis, SOB with Excertion, Pleuritic Pain, Sputum, Wheezing Cardiovascular: negative: chest pain, palpitations, orthopnea, paroxysmal nocturnal dyspnea, edema, light headedness, other Gastrointestinal: negative: Nausea, Vomiting, Abdominal Pain, Diarrhea, Constipation, Melena, Hematochezia, Other Genitourinary: negative: Dysuria, Frequency, Incontinence, Hematuria, Retention , Other - Medications/Allergies Allergies/Adverse Reactions: Allergies Allergy/AdvReac Type Severity Reaction Status Date / Time Penicillins Allergy Verified 05/03/18 17:33 Medications: Current Medications Acetaminophen (Tylenol) 650 mg PO Q4H PRN PRN Reason: Headache/Fever or Pain Last Admin: 05/04/18 20:19 Dose: 650 mg Hydrocodone Bitart/Acetaminophen ([place] 5/325) 1 tab PO Q4H PRN PRN Reason: Moderate Pain (4-6) Last Admin: 05/05/18 20:57 Dose: 1 tab Al Hydroxide/Mg Hydroxide (Maalox) 30 ml PO Q6H PRN PRN Reason: Heartburn or Indigestion Aspirin (Ecotrin) 81 mg PO [facility] Last Admin: 05/07/18 08:52 Dose: 81 mg Atorvastatin Calcium (Lipitor) 40 mg PO [facility] Last Admin: 05/07/18 08:52 Dose: 40 mg Carvedilol (Coreg) 3.125 mg PO BID [facility] Last Admin: 05/07/18 08:52 Dose: 3.125 mg Clonidine (Catapres) 0.2 mg PO BID [facility] Last Admin: 05/07/18 08:52 Dose: 0.2 mg Docusate Sodium (Colace) 100 mg PO BID [facility] Last Admin: 05/07/18 08:52 Dose: 100 mg Hydralazine HCl (Apresoline) 10 mg SLOW IVP Q4H PRN PRN Reason: Systolic BP > 180 Hydrochlorothiazide (Hydrochlorothiazide) 25 mg PO [facility] Last Admin: 05/07/18 08:52 Dose: 25 mg Ceftriaxone Sodium 1 gm/ (Sodium Chloride) 100 mls @ 200 mls/hr IVPB Q24HR [facility] Last Admin: 05/07/18 12:17 Dose: 100 mls Ibuprofen (Motrin) 800 mg PO Q6H PRN PRN Reason: .FEVER Miscellaneous Medication (Pharmacy To Dose) 1 each IVPB PRN PRN PRN Reason: Pharmacy to dose Pantoprazole Sodium (Protonix) 40 mg PO QAM [facility] Last Admin: 05/07/18 08:52 Dose: 40 mg Warfarin Sodium (Coumadin) 5 mg PO SuTuThSa@1700 [facility] Last Admin: 05/06/18 17:28 Dose: 5 mg Warfarin Sodium (Coumadin) 7.5 mg PO MoWeFr@1700 [facility] Last Admin: 05/07/18 17:13 Dose: 7.5 mg
[2018-05-08 04:48] LABS: INR-International Normal Ratio 2.3; Prothrombin Time 26.2 SEC (12.0-14.7)
[2018-05-08] MEDS: Atorvastatin Calcium 40 MG TAB PO SCH (07:57)
[2018-05-08] MEDS: cloNIDine 0.1 MG TAB PO SCH ×2 (07:57→21:03)
[2018-05-08] MEDS: Carvedilol 3.125 MG TAB PO SCH ×2 (07:57→21:03)
[2018-05-08] MEDS: Aspirin 81 mg Enteric Coated Tablet PO SCH (07:57)
[2018-05-08] MEDS: Hydrochlorothiazide 25 MG TAB PO SCH (07:57)
[2018-05-08] MEDS: Docusate 100 MG CAP PO SCH ×2 (07:58→21:03)
[2018-05-08] MEDS ORDERED: Potassium Chloride 20 MEQ TAB PO SCH (08:30)
[2018-05-08] MEDS: cefTRIAXone\\ROCEPHIN 1 GM in Sodium Chloride 0.9% 100 ML IVPB SCH (11:26)
[2018-05-08] MEDS: Warfarin Sodium 5 MG TAB PO SCH (16:42)
[2018-05-08 17:00] LABS: Anion Gap 16 mmol/L (10-20); BUN (Urea Nitrogen) 11 mg/dL (8.4-25.7); Calc. Creatinine Clearance 146 mL/min (70-130); Carbon Dioxide 28 mmol/L (23-31); Chloride 96 mmol/L (98-107); Estimated GFR-MDRD Greater than 90; Glucose 284 mg/dL (80-115); Magnesium 2.3 mg/dL (1.6-2.6); Sodium 136 mmol/L (136-145)
[2018-05-08] MEDS ORDERED: Furosemide 20 MG/2 ML VIAL SLOW IVP SCH (18:15)
--- NOTE | 2018-05-09 06:28 | PDOC.PN ---
- Subjective Encounter Start Date: 05/08/18 Encounter Start Time: 09:00 Subjective: pt up in chair no complains. - Objective Resuscitation Status: Resuscitation Status FULL:Full Resuscitation Vital Signs & Weight: Vital Signs (12 hours) Temp Pulse Resp BP BP Pulse Ox 05/08/18 21:03 125/72 05/08/18 20:00 98.5 F 93 20 05/08/18 19:27 98.5 F 93 20 107/65 96 Weight Admit Weight 257 lb Weight 257 lb I&O: 05/07/18 05/08/18 05/09/18 06:59 06:59 06:59 Intake Total 2040 750 1070 Output Total 600 Balance 2040 150 1070 Result Diagrams: 05/07/18 08:53 05/08/18 16:33 Phys Exam - Physical Examination HEENT: PERRLA, moist MMs, sclera anicteric, TM's clear, oral pharynx no lesions , 2+ tonsils Neck: no nodes, no JVD, supple, full ROM Respiratory: no wheezing, no rales, no rhonchi, wheezing present, clear to auscultation bilateral audible mechanical valve Gastrointestinal: soft, non-tender, no distention, positive bowel sounds Musculoskeletal: edema present L>R significant drainage from his left leg Neurological: non-focal, normal sensation, moves all 4 limbs Dx/Plan (1) Cellulitis and abscess of left leg Code(s): L03.116 - CELLULITIS OF LEFT LOWER LIMB; L02.416 - CUTANEOUS ABSCESS OF LEFT LOWER LIMB Status: Acute (2) Bacteremia Code(s): R78.81 - BACTEREMIA Status: Acute (3) Prosthetic replacement of heart valve Code(s): Z95.2 - PRESENCE OF PROSTHETIC HEART VALVE Status: Chronic Comment : AVR (4) Coronary artery disease Code(s): I25.10 - ATHSCL HEART DISEASE OF [place] CORONARY ARTERY W/O ANG PCTRS Status: Acute (5) Obesity (BMI 30.0-34.9) Code(s): E66.9 - OBESITY, UNSPECIFIED Status: Acute - Plan INR level stable wound care to apply compression dressing on will discharge pt home in am one dose of lasix given due to significant edema to bilateral lower ext * . Review of Systems - Review of Systems ENT: negative: Ear Pain, Ear Discharge, Nose Pain, Nose Discharge, Nose Congestion, Mouth Pain, Mouth Swelling, Throat Pain, Throat Swelling, Other Respiratory: negative: Cough, Dry, Shortness of Breath, Hemoptysis, SOB with Excertion, Pleuritic Pain, Sputum, Wheezing Cardiovascular: negative: chest pain, palpitations, orthopnea, paroxysmal nocturnal dyspnea, edema, light headedness, other Gastrointestinal: negative: Nausea, Vomiting, Abdominal Pain, Diarrhea, Constipation, Melena, Hematochezia, Other Genitourinary: negative: Dysuria, Frequency, Incontinence, Hematuria, Retention , Other - Medications/Allergies Allergies/Adverse Reactions: Allergies Allergy/AdvReac Type Severity Reaction Status Date / Time Penicillins Allergy Verified 05/03/18 17:33 Medications: Current Medications Acetaminophen (Tylenol) 650 mg PO Q4H PRN PRN Reason: Headache/Fever or Pain Last Admin: 05/04/18 20:19 Dose: 650 mg Hydrocodone Bitart/Acetaminophen ([place] 5/325) 1 tab PO Q4H PRN PRN Reason: Moderate Pain (4-6) Last Admin: 05/05/18 20:57 Dose: 1 tab Al Hydroxide/Mg Hydroxide (Maalox) 30 ml PO Q6H PRN PRN Reason: Heartburn or Indigestion Aspirin (Ecotrin) 81 mg PO [facility] Last Admin: 05/08/18 07:57 Dose: 81 mg Atorvastatin Calcium (Lipitor) 40 mg PO [facility] Last Admin: 05/08/18 07:57 Dose: 40 mg Carvedilol (Coreg) 3.125 mg PO BID [facility] Last Admin: 05/08/18 21:03 Dose: 3.125 mg Clonidine (Catapres) 0.2 mg PO BID [facility] Last Admin: 05/08/18 21:03 Dose: 0.2 mg Docusate Sodium (Colace) 100 mg PO BID [facility] Last Admin: 05/08/18 21:03 Dose: 100 mg Hydralazine HCl (Apresoline) 10 mg SLOW IVP Q4H PRN PRN Reason: Systolic BP > 180 [facility]chlorothiazide ([facility]iaz[facility]) [facility] [place] Last Admin: 05/08/18 07:57 Dose: 25 mg Ceftriaxone Sodium 1 gm/ (Sodium Chloride) 100 mls @ 200 mls/hr IVPB Q24HR [facility] Last Admin: 06/12/18 11:26 Dose: 100 mls Ibuprofen (Motrin) 800 mg PO Q6H PRN PRN Reason: .FEVER Miscellaneous Medication (Pharmacy To Dose) 1 each IVPB PRN PRN PRN Reason: Pharmacy to dose Pantoprazole Sodium (Protonix) 40 mg PO QAM [facility] Last Admin: 05/08/18 07:58 Dose: 40 mg Warfarin Sodium (Coumadin) 5 mg PO SuTuThSa@1700 [facility] Last Admin: 05/08/18 16:42 Dose: 5 mg Warfarin Sodium (Coumadin) 7.5 mg PO MoWeFr@1700 [facility] Last Admin: 05/07/18 17:13 Dose: 7.5 mg
[2018-05-09 07:20] VITALS: TEMP 98.3
[2018-05-09] MEDS: Docusate 100 MG CAP PO SCH (08:15)
[2018-05-09] MEDS: Hydrochlorothiazide 25 MG TAB PO SCH (08:15)
[2018-05-09] MEDS: Carvedilol 3.125 MG TAB PO SCH (08:15)
[2018-05-09] MEDS: Aspirin 81 mg Enteric Coated Tablet PO SCH (08:15)
[2018-05-09] MEDS: Atorvastatin Calcium 40 MG TAB PO SCH (08:15)
[2018-05-09 11:11] VITALS: BP 112/66
[2018-05-09] MEDS: cefTRIAXone\\ROCEPHIN 1 GM in Sodium Chloride 0.9% 100 ML IVPB SCH (11:50)
[2018-05-09 14:19] LABS: INR-International Normal Ratio 2.1; Prothrombin Time 24.3 SEC (12.0-14.7)
[2018-05-09] MEDS ORDERED: Cephalexin 250 MG CAP PO SCH (18:00)
[2018-05-10] MEDS ORDERED: Amlodipine 10 MG TAB PO SCH (09:00)
== END 2018-05-09 16:16 | disposition home or self-care (01) | DRG 872 ==
LOC: ERS 12:05 → OBSVTOIN 16:31 → 2SW 16:31 → T4-B 05-04 13:10
PROVIDERS: ADMIT Internal Medicine; ATTEND Internal Medicine
DX: A40.8 Other streptococcal sepsis (principal); L03.116 Cellulitis of left lower limb; I25.10 Atherosclerotic heart disease of native coronary artery without angina pectoris; I11.0 Hypertensive heart disease with heart failure; I50.9 Heart failure, unspecified; Z95.2 Presence of prosthetic heart valve; I73.9 Peripheral vascular disease, unspecified; I87.2 Venous insufficiency (chronic) (peripheral); E78.5 Hyperlipidemia, unspecified; I87.8 Other specified disorders of veins; E66.9 Obesity, unspecified; Z68.33 Body mass index [BMI] 33.0-33.9, adult; Z95.1 Presence of aortocoronary bypass graft; Z79.01 Long term (current) use of anticoagulants; Z79.82 Long term (current) use of aspirin; Z88.0 Allergy status to penicillin
CPT/HCPCS: 36415; 80048; 80053; 83605; 83735; 83880; 85007; 85014; 85018; 85025; 85027; 85049; 85610; 87040; 87077; 87149; 87186; 93306; 93922; 96365; 96375; J0692; J0696; J1940; J1956; J3370; J7050

== ENCOUNTER 2018-05-14 09:33 | Outpatient (CLI) | payer OTHER | END 2018-05-14 09:34 | disposition home or self-care (01) | LOC: WCC 09:33 | PROVIDERS: ATTEND Family Medicine | DX: L97.229 Non-pressure chronic ulcer of left calf with unspecified severity (principal) | CPT/HCPCS: 29581 ==

== ENCOUNTER 2018-05-17 07:51 | Outpatient (CLI) | payer OTHER ==
--- NOTE | 2018-05-17 09:59 | HP ---
DATE OF SERVICE: 05/17/2018 HISTORY OF PRESENT ILLNESS: Mr. Gage Strickland is a very pleasant 63-year-old gentleman who [facility] of multiple ulcerations of the left lower leg. The patient states that he first developed left lower leg ulcerations after open heart surgery on 01/15/[address] Loyola. He states that he had swelling of both lower extremities with the swelling of the left lower extremity greater than that of the right. The patient states that after surgery his swelling resolved completely and he went back to work. He states that 2 weeks later, he developed left lower extremity edema and was eventually admitted for left lower extremity cellulitis to [facility]. The patient states he was discharged to home 8 days ago on p.o. antibiotics. PAST MEDICAL HISTORY: 1. Hypertension. 2. Coronary artery disease. 3. Atrial flutter. 4. Intermittent atrial fibrillation. 5. Aortic arch replacement/coronary artery bypass grafting x1/aortic valve replacement. PAST SURGICAL HISTORY: 1. Coronary artery bypass grafting x2 and aortic valve replacement for aortic insufficiency 12 years ago. 2. Umbilical hernia repair. 3. Right shoulder surgery. 4. Right total knee arthroplasty. 5. Left foot surgery. 6. Right finger surgery. 7. Incision and drainage of left medial thigh abscess. 8. Aortic arch replacement/coronary artery bypass grafting x1/aortic valve replacement. MEDICATIONS: 1. Warfarin. 2. Atorvastatin. 3. Hydrochlorothiazide. 4. Aspirin 81 mg. 5. Clonidine. 6. Coreg. 7. Cephalexin. ALLERGIES: No known diagnosed allergies. SOCIAL HISTORY: Significant for tobacco use of up to 1-1/2 packs of cigarettes per day for 10 years. The patient states that he stopped smoking 25 years ago. The patient admits to only the social con sumption of alcohol. FAMILY HISTORY: Negative for diabetes mellitus or coronary artery disease. REVIEW OF SYSTEMS: The patient states that he has been receiving dressing changes of Aquacel AG, ABD s, Kerlix, and an Ramos bandage for his left lower leg ulcerations. PHYSICAL EXAMINATION: VITAL SIGNS: Temperature 98.3, pulse 86, respirations 17, blood pressure 134/74. GENERAL: A 63-year-old gentleman sitting on table in examination room in no acute distress. HEENT: Normocephalic, atraumatic. NECK: No nuchal rigidity. CHEST: Clear to auscultation. CARDIOVASCULAR: Regular rate and rhythm. ABDOMEN: Soft. EXTREMITIES: Multiple ulcerations of the left lower leg are present. No purulent drainage is associ ated with any of the wounds. Erythema of the left lower leg is present consistent with resolving hema lulitis and stasis changes. No maceration of the skin of the left lower leg is noted. A dorsalis pe dis pulse is palpable on the left. Significant edema of the left foot and lower leg is present on ex am today. NEUROLOGIC: Grossly nonfocal. ASSESSMENT AND PLAN: 1. Chronic venous hypertension with ulcers and inflammation. Dressing changes of Xeroform gauze, AB Ds, Kerlix, and Ramos bandages will be initiated today. These dressing changes are to be performed on a daily basis or as needed after cleansing and irrigation. The patient will be performing his own dr schilling changes. Arrangements will be made for the home delivery of dressing supplies. The patient h as been told that he is to continue p.o. antibiotics as previously prescribed. I will see Mr. Strickland again in two weeks. Mr. Strickland understands and is in agreement with the preceding treatment plan. 2. Hypertension. 3. Coronary artery disease. 4. Atrial flutter. 5. Intermittent atrial fibrillation. 6. Aortic arch replacement/coronary artery bypass grafting x1/aortic valve replacement.
[2018-05-17] MEDS ORDERED: Sodium Chloride 0.9% 15 ML NEB ONE (19:01)
== END 2018-05-17 07:52 | disposition home or self-care (01) ==
LOC: WCC 07:51
PROVIDERS: ATTEND Family Medicine
DX: I87.332 Chronic venous hypertension (idiopathic) with ulcer and inflammation of left lower extremity (principal); L97.929 Non-pressure chronic ulcer of unspecified part of left lower leg with unspecified severity; I10 Essential (primary) hypertension; I25.10 Atherosclerotic heart disease of native coronary artery without angina pectoris; I48.92 Unspecified atrial flutter; I48.91 Unspecified atrial fibrillation; Z95.2 Presence of prosthetic heart valve; Z95.1 Presence of aortocoronary bypass graft
CPT/HCPCS: A4218

== ENCOUNTER 2020-07-10 10:40 | Day surgery (SDC) | payer MEDICARE, OTHER ==
[2020-07-07 14:08] VITALS: BMI 34.2
[2020-07-10] MEDS ORDERED: PROPOFOL 20 ML ONE (12:44)
--- NOTE | 2020-07-10 19:47 | CCLSPC ---
INDICATION FOR PROCEDURE: 65-year-old gentleman who has developed atrial flutter with controlled ventricular response. However, he needs to undergo surgical procedure and given the atrial flutter it was felt best that he proceed with an electrocardioversion of atrial flutter and then most likely in the future will need to undergo ablation of the atrial flutter. PROCEDURE IN DETAIL: He was taken to the recovery area where he underwent the procedure today without difficulties or complications. He was given short acting propofol. At the beginning of the procedure, his heart rate was in the 60s with atrial flutter. He then was given one attempt at 100 joules and the atrial flutter then converted to atrial fibrillation. He was then given a second shock at 200 joules, which converted the atrial fibrillation back to normal sinus rhythm with the heart rate in the 40s and 50s. The heart rate was 48 to 52. There were no complications or difficulties encountered. If he remains stable, he will be discharged later and should be a reasonable candidate to proceed with his eye surgery. Job ID: [id number]
--- NOTE | 2020-07-10 22:18 | DIS ---
DATE OF ADMISSION: 07/10/2020 DATE OF DISCHARGE: 07/10/2020 DATE OF PROCEDURE: This is an outpatient, was 07/10/2020. INDICATION FOR OUTPATIENT PROCEDURE: Atrial flutter. He also has a history of aortic dissection, underwent repair. He had aortic valve replacement. DISCHARGE DIAGNOSES: Atrial flutter. He also has a history of aortic dissection, underwent repair. He had aortic valve replacement. He also had an atrial fibrillation. PROCEDURES IN HOSPITAL: Included electrocardioversion of atrial flutter, which then converted to atrial fibrillation, which he was shocked again in sinus rhythm. FOLLOWUP: His followup will be with me in about 1 to 2 weeks in the office. We will repeat EKG to ensure that he remains in sinus rhythm. DISCHARGE MEDICATIONS: Will be the same as his home medications. These include; 1. Atorvastatin 40 mg a day. 2. Coumadin 5 mg take as directed, keep an INR between 2.5 and 3.5. 3. 81 mg a day of aspirin. 4. Hydrochlorothiazide 25 mg tablets once a day. 5. Coreg 3.125 mg b.i.d. 6. Clonidine 0.1 mg two tablets b.i.d. 7. Metformin 1000 mg once a day. HOSPITAL COURSE: This very pleasant 65-year-old gentleman, who has a history of aortic valve replacement as well as hypertension, hyperlipidemia, and left bundle branch block. He developed atrial flutter. He has also had a history of a thoracic aortic dissection, which required repair. He has a mechanical valve in aortic position. He has been on Coumadin. 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 He then was found to have atrial flutter and he was advised to undergo electrical cardioversion of the atrial flutter back to sinus rhythm prior to undergoing his surgery. He was taken to the recovery area, where he had short acting propofol using one attempt at 100 joules, he was converted from atrial fibrillation, but he then went into atrial fibrillation. A second attempt using 200 joules was then proceeded with and the patient was then successfully converted back to sinus rhythm. At the time of dictation, he remains in sinus rhythm with a heart rate in the low 50s, but otherwise has remained stable throughout the procedure without difficulties or complications. If he remains stable, he will be discharged home and I will see him back in the office in the next 1 to 2 weeks for repeat EKG to ensure that he remains in sinus rhythm. We have already discussed with the sales representative wire rope previously about proceeding with possible ablation of the atrial flutter in the future as this is very difficult to control with medications and once he is finished with his eye surgery, most likely he will need to undergo ablation of the atrial flutter if it returns. Job ID: [id number]
--- NOTE | 2020-07-11 18:53 | EKG ---
Test Reason : POST CARDIOVERSION Blood Pressure : / mmHG Vent. Rate : 051 BPM Atrial Rate : 051 BPM P-R Int : 276 ms QRS Dur : 130 ms QT Int : 444 ms P-R-T Axes : -08 -41 149 degrees QTc Int : 409 ms Sinus bradycardia with 1st degree A-V block Left axis deviation Non-specific intra-ventricular conduction block Inferior infarct , age undetermined T wave abnormality, consider lateral ischemia Abnormal ECG Confirmed by DR. Wu QUEEN ([id number]) on 07/11/2020 6:53:19 PM Referred By: SOFIE Confirmed By:DR. Wu QUEEN
== END 2020-07-10 13:48 | disposition home or self-care (01) ==
LOC: CCL 10:40
PROVIDERS: ATTEND Internal Medicine Cardiovascular Disease
PROC: 5A2204Z Restoration of Cardiac Rhythm, Single (ICD-10-PCS; principal; 2020-07-10)
DX: I48.3 Typical atrial flutter (principal); I48.91 Unspecified atrial fibrillation; I44.7 Left bundle-branch block, unspecified; I10 Essential (primary) hypertension; I25.10 Atherosclerotic heart disease of native coronary artery without angina pectoris; C44.1192 Basal cell carcinoma of skin of left lower eyelid, including canthus; E11.9 Type 2 diabetes mellitus without complications; E27.9 Disorder of adrenal gland, unspecified; E78.2 Mixed hyperlipidemia; Z87.891 Personal history of nicotine dependence; Z79.01 Long term (current) use of anticoagulants; Z79.82 Long term (current) use of aspirin; Z79.84 Long term (current) use of oral hypoglycemic drugs; Z79.899 Other long term (current) drug therapy; Z88.0 Allergy status to penicillin; Z95.1 Presence of aortocoronary bypass graft; Z95.2 Presence of prosthetic heart valve; Z98.890 Other specified postprocedural states
CPT/HCPCS: 92960; 93005; 93010; J2704